=== PATIENT | male | born 1960 | race Caucasian/White ===

== ENCOUNTER 2019-02-13 23:10 | Inpatient (IN) | payer OTHER ==
[2019-02-14 01:49] LABS: ABNORMAL IP MESSAGE 1; HEMATOCRIT 43.8 % (42.0-52.0); HEMOGLOBIN 14.7 g/dl (14.0-18.0); MEAN CORPUSCULAR HEMOGLOBIN 29.9 pg (29.0-33.0); MEAN CORPUSCULAR HGB CONC 33.6 g/dl (32.0-37.0); PLATELET COUNT 230 10^3/UL (140-415); POSITIVE DIFF @See below; RED BLOOD COUNT 4.92 10^6/ul (4.70-6.10); RED CELL DISTRIBUTION WIDTH 12.5 % (11.5-14.5)
[2019-02-14 01:49] LABS: WHITE BLOOD COUNT 26.2 10^3/ul (4.8-10.8)
[2019-02-14] MEDS: SOD CHLORIDE 0.9% 1,000 ML IV ×2 (01:55→03:51)
[2019-02-14] MEDS: METOCLOPRAMIDE 10 MG INJ IV (01:55)
[2019-02-14] MEDS: LIDOCAINE/MYLANTA 40 ML BTL PO (01:55)
[2019-02-14] MEDS: FAMOTIDINE 20 MG TAB PO (01:55)
[2019-02-14 02:00] LABS: ADD MAN DIFF? YES
[2019-02-14 03:02] LABS: ALANINE AMINOTRANSFERASE 37 IU/L (13-69); ALBUMIN 4.5 g/dl (3.3-4.9); ALBUMIN/GLOBULIN RATIO 1.25; ALKALINE PHOSPHATASE 129 IU/L (42-121); ANION GAP 24 (5-13); ASPARTATE AMINO TRANSFERASE 32 IU/L (15-46); BILIRUBIN,INDIRECT 0.5 mg/dl (0-1.1); BILIRUBIN,TOTAL 0.5 mg/dl (0.2-1.3); BLOOD UREA NITROGEN 54 mg/dl (7-20); CALCIUM 10.1 mg/dl (8.4-10.2); CARBON DIOXIDE 17 mmol/L (21-31); CHLORIDE 96 mmol/L (97-110); CREATININE 2.63 mg/dl (0.61-1.24); Estimated GFR 25 mL/min (>60); LIPASE 230 U/L (23-300); POTASSIUM 5.8 mmol/L (3.5-5.1); SODIUM 137 mmol/L (135-144); TOTAL PROTEIN 8.1 g/dl (6.1-8.1); TROPONIN-I < 0.012 ng/ml (0.000-0.120)
[2019-02-14 03:04] LABS: GLUCOSE 662 mg/dl (70-220)
[2019-02-14 03:06] LABS: BAND NEUTROPHILS #M 1.5 10^3/ul (0.0-0.6); BAND NEUTROPHILS % (M) 6 % (0-4); LYMPHOCYTES % (M) 8 % (15-51); MONOCYTE #M 1.3 10^3/ul (0.3-0.9); MONOCYTES % (M) 5 % (0-11); PLATELET ESTIMATE NORMAL; POIKILOCYTOSIS 1+ (0-0); POLYCHROMASIA 2+ (0-0); SEG NEUT #M 21.6 10^3/ul (1.6-7.5); SEGMENTED NEUTROPHILS (M) % 81 % (39-77); SMUDGE%M 3 % (0-0)
[2019-02-14] MEDS ORDERED: DEXTROSE 10 %/0.45 % NACL 1,000 ML IV (03:26)
[2019-02-14] MEDS ORDERED: D10/0.45% NACL + KCL 40 MEQ 1,000 ML IV (03:26)
[2019-02-14] MEDS ORDERED: NS + KCL 40 MEQ 1,000 ML IV (03:26)
[2019-02-14] MEDS ORDERED: DEXTROSE 50% 50 ML SYRINGE IV ×2 (03:30)
[2019-02-14 03:39] LABS: ADD UMIC YES; UR ASCORBIC ACID NEGATIVE (NEGATIVE); UR BACTERIA FEW /HPF (NONE SEEN); UR BILIRUBIN (Dip) NEGATIVE (NEGATIVE); UR BLOOD (Dip) 2+ mg/dL (NEGATIVE); UR CLARITY CLEAR (CLEAR); UR COLOR STRAW (YELLOW); UR GLUCOSE (Dip) 3+ mg/dL (NEGATIVE); UR KETONES (Dip) 1+ mg/dL (NEGATIVE); UR LEUKOCYTE ESTERASE (Dip) NEGATIVE Leu/ul (NEGATIVE); UR NITRITE (Dip) NEGATIVE (NEGATIVE); UR RBC 1 /HPF (0-5); UR SPECIFIC GRAVITY (Dip) 1.025 (1.003-1.030); UR TOTAL PROTEIN (Dip) NEGATIVE (NEGATIVE); UR UROBILINOGEN (Dip) NEGATIVE (NEGATIVE); UR WBC 15 /HPF (0-5)
[2019-02-14 03:47] LABS: HEMOGLOBIN A1C 12.1 % (0-5.9)
[2019-02-14 03:48] LABS: PHOSPHORUS 4.4 mg/dl (2.5-4.9)
[2019-02-14 03:48] LABS: MAGNESIUM 2.9 mg/dl (1.7-2.5); MODE ROOM AIR; MetHgb Venous 0.2 %; Sample Type Blood venous; Site VENOUS LINE; Venous COHb 0.6 %; Venous Fraction OxyHgb 51.3 %; Venous Oxygen Sat 51.7 mmHG (55.0-75.0)
[2019-02-14] MEDS: LACTATED RINGER'S 910 ML IV (03:50)
[2019-02-14] MEDS: INSULIN REGULAR, HUMAN 100 UNIT in SOD CHLORIDE 0.9% 100 ML IV (04:15)
[2019-02-14 05:26] LABS: MODE ROOM AIR; MetHgb Venous 0.2 %; Sample Type Blood venous; Site VENOUS LINE; Venous COHb 0.7 %; Venous Fraction OxyHgb 53.8 %; Venous Oxygen Sat 54.3 mmHG (55.0-75.0); Venous Total Hemglobin 14.2 g/dl
[2019-02-14] MEDS ORDERED: ONDANSETRON 4 MG INJ IV (07:00)
[2019-02-14] MEDS ORDERED: ALBUTEROL/IPRATROPIUM (NEB) 3 ML AMP NEB (07:00)
[2019-02-14] MEDS: NS + KCL 30 MEQ 1,000 ML IV (07:16)
[2019-02-14 07:20] LABS: ANION GAP 21 (5-13); BLOOD UREA NITROGEN 52 mg/dl (7-20); CALCIUM 9.3 mg/dl (8.4-10.2); CARBON DIOXIDE 16 mmol/L (21-31); CHLORIDE 102 mmol/L (97-110); CREATININE 2.33 mg/dl (0.61-1.24); Estimated GFR 29 mL/min (>60); MAGNESIUM 2.9 mg/dl (1.7-2.5); PHOSPHORUS 3.8 mg/dl (2.5-4.9); POTASSIUM 4.9 mmol/L (3.5-5.1); SODIUM 139 mmol/L (135-144)
[2019-02-14 07:22] LABS: GLUCOSE 495 mg/dl (70-220)
[2019-02-14 08:14] LABS: MODE ROOM AIR; MetHgb Venous 0.2 %; Sample Type Blood venous; Site VENOUS LINE; Venous COHb 0.8 %; Venous Fraction OxyHgb 87.2 %; Venous Oxygen Sat 88.1 mmHG (55.0-75.0); Venous Total Hemglobin 13.9 g/dl
[2019-02-14 08:31] LABS: ANION GAP 18 (5-13); BLOOD UREA NITROGEN 51 mg/dl (7-20); CALCIUM 9.3 mg/dl (8.4-10.2); CARBON DIOXIDE 17 mmol/L (21-31); CHLORIDE 106 mmol/L (97-110); CREATININE 2.15 mg/dl (0.61-1.24); Estimated GFR 32 mL/min (>60); GLUCOSE 357 mg/dl (70-220); MAGNESIUM 2.9 mg/dl (1.7-2.5); PHOSPHORUS 3.5 mg/dl (2.5-4.9); POTASSIUM 4.6 mmol/L (3.5-5.1); SODIUM 141 mmol/L (135-144)
[2019-02-14] MEDS: PANTOPRAZOLE 40 MG INJ IV (09:09)
[2019-02-14] MEDS: CEFTRIAXONE 1 GM/50 ML (PMX) 50 ML IVPB (09:10)
[2019-02-14] MEDS: ENOXAPARIN 40 MG/0.4 ML SYG SC (09:10)
[2019-02-14] MEDS: D10/0.45% NACL + KCL 30 MEQ 1,000 ML IV (10:15)
[2019-02-14 11:30] LABS: ANION GAP 11 (5-13); BLOOD UREA NITROGEN 49 mg/dl (7-20); CALCIUM 8.9 mg/dl (8.4-10.2); CARBON DIOXIDE 23 mmol/L (21-31); CHLORIDE 109 mmol/L (97-110); CREATININE 2.05 mg/dl (0.61-1.24); Estimated GFR 34 mL/min (>60); GLUCOSE 218 mg/dl (70-220); MAGNESIUM 2.9 mg/dl (1.7-2.5); PHOSPHORUS 2.5 mg/dl (2.5-4.9); POTASSIUM 4.6 mmol/L (3.5-5.1); SODIUM 143 mmol/L (135-144)
[2019-02-14 12:50] LABS: ADD UMIC YES; UR ASCORBIC ACID NEGATIVE (NEGATIVE); UR BILIRUBIN (Dip) NEGATIVE (NEGATIVE); UR BLOOD (Dip) 2+ mg/dL (NEGATIVE); UR CLARITY SLIGHTLY CLOUDY (CLEAR); UR COLOR STRAW (YELLOW); UR GLUCOSE (Dip) 3+ mg/dL (NEGATIVE); UR KETONES (Dip) 1+ mg/dL (NEGATIVE); UR LEUKOCYTE ESTERASE (Dip) TRACE Leu/ul (NEGATIVE); UR NITRITE (Dip) NEGATIVE (NEGATIVE); UR RBC 4 /HPF (0-5); UR SPECIFIC GRAVITY (Dip) 1.024 (1.003-1.030); UR TOTAL PROTEIN (Dip) NEGATIVE (NEGATIVE); UR UROBILINOGEN (Dip) NEGATIVE (NEGATIVE); UR WBC 18 /HPF (0-5)
[2019-02-14] MEDS: INSULIN GLARGINE [LANTus] (100 UNITS/ML) SYG SC ×2 (13:06→22:18)
[2019-02-14 16:23] LABS: ANION GAP 9 (5-13); BLOOD UREA NITROGEN 41 mg/dl (7-20); CALCIUM 8.9 mg/dl (8.4-10.2); CARBON DIOXIDE 20 mmol/L (21-31); CHLORIDE 114 mmol/L (97-110); CREATININE 1.77 mg/dl (0.61-1.24); Estimated GFR 40 mL/min (>60); GLUCOSE 186 mg/dl (70-220); MAGNESIUM 2.9 mg/dl (1.7-2.5); PHOSPHORUS 2.4 mg/dl (2.5-4.9); POTASSIUM 4.8 mmol/L (3.5-5.1); SODIUM 143 mmol/L (135-144)
[2019-02-14] MEDS: INSULIN ASPART [NOVOLOG] 3 ML PEN SC ×3 (18:24→22:13)
[2019-02-14 20:21] LABS: ANION GAP 13 (5-13); BLOOD UREA NITROGEN 39 mg/dl (7-20); CALCIUM 8.8 mg/dl (8.4-10.2); CARBON DIOXIDE 18 mmol/L (21-31); CHLORIDE 110 mmol/L (97-110); CREATININE 1.64 mg/dl (0.61-1.24); Estimated GFR 43 mL/min (>60); GLUCOSE 367 mg/dl (70-220); MAGNESIUM 2.6 mg/dl (1.7-2.5); PHOSPHORUS 2.3 mg/dl (2.5-4.9); POTASSIUM 5.3 mmol/L (3.5-5.1); SODIUM 141 mmol/L (135-144)
[2019-02-14] MEDS: ACETAMINOPHEN 650MG/20.3ML CUP PO (22:20)
[2019-02-14 23:52] LABS: ANION GAP 14 (5-13); BLOOD UREA NITROGEN 39 mg/dl (7-20); CALCIUM 8.9 mg/dl (8.4-10.2); CARBON DIOXIDE 19 mmol/L (21-31); CHLORIDE 109 mmol/L (97-110); CREATININE 1.66 mg/dl (0.61-1.24); Estimated GFR 43 mL/min (>60); GLUCOSE 355 mg/dl (70-220); MAGNESIUM 2.7 mg/dl (1.7-2.5); PHOSPHORUS 2.5 mg/dl (2.5-4.9); POTASSIUM 5.1 mmol/L (3.5-5.1); SODIUM 142 mmol/L (135-144)
[2019-02-15] MEDS: ACCU-CHEK XX ×3 (02:00→20:56)
[2019-02-15 04:01] LABS: CHOL/HDL RATIO 5.9 RATIO; HDL CHOLESTEROL 18 mg/dl (28-71); LDL CHOLESTEROL,CALCULATED 44 mg/dl; TRIGLYCERIDES 224 mg/dl (0-149)
[2019-02-15 04:01] LABS: CHOLESTEROL 107 mg/dl (100-200)
[2019-02-15 04:02] LABS: ANION GAP 10 (5-13); BLOOD UREA NITROGEN 35 mg/dl (7-20); CALCIUM 9.3 mg/dl (8.4-10.2); CARBON DIOXIDE 19 mmol/L (21-31); CHLORIDE 112 mmol/L (97-110); CREATININE 1.53 mg/dl (0.61-1.24); Estimated GFR 47 mL/min (>60); GLUCOSE 250 mg/dl (70-220); MAGNESIUM 2.7 mg/dl (1.7-2.5); PHOSPHORUS 2.6 mg/dl (2.5-4.9); POTASSIUM 4.7 mmol/L (3.5-5.1); SODIUM 141 mmol/L (135-144)
[2019-02-15] MEDS: FAMOTIDINE 20 MG INJ IV (08:10)
[2019-02-15] MEDS: CEFTRIAXONE 1 GM/50 ML (PMX) 50 ML IVPB (08:11)
[2019-02-15] MEDS: INSULIN ASPART [NOVOLOG] 3 ML PEN SC ×7 (08:14→20:55)
[2019-02-15] MEDS: ENOXAPARIN 40 MG/0.4 ML SYG SC (08:18)
[2019-02-15 08:22] LABS: ANION GAP 13 (5-13); BLOOD UREA NITROGEN 33 mg/dl (7-20); CALCIUM 8.9 mg/dl (8.4-10.2); CARBON DIOXIDE 20 mmol/L (21-31); CHLORIDE 107 mmol/L (97-110); CREATININE 1.52 mg/dl (0.61-1.24); Estimated GFR 47 mL/min (>60); GLUCOSE 234 mg/dl (70-220); MAGNESIUM 2.5 mg/dl (1.7-2.5); PHOSPHORUS 2.7 mg/dl (2.5-4.9); POTASSIUM 4.8 mmol/L (3.5-5.1); SODIUM 140 mmol/L (135-144)
[2019-02-15 12:15] LABS: ANION GAP 13 (5-13); BLOOD UREA NITROGEN 34 mg/dl (7-20); CALCIUM 9.2 mg/dl (8.4-10.2); CARBON DIOXIDE 18 mmol/L (21-31); CHLORIDE 109 mmol/L (97-110); CREATININE 1.35 mg/dl (0.61-1.24); Estimated GFR 54 mL/min (>60); GLUCOSE 246 mg/dl (70-220); MAGNESIUM 2.5 mg/dl (1.7-2.5); PHOSPHORUS 2.9 mg/dl (2.5-4.9); POTASSIUM 4.9 mmol/L (3.5-5.1); SODIUM 140 mmol/L (135-144)
[2019-02-15] MEDS ORDERED: GLUCAGON 1 MG INJ IM (16:00)
[2019-02-15] MEDS ORDERED: GLUCOSE GEL 15 GRAM TUBE BUCCAL (16:00)
[2019-02-15] MEDS ORDERED: GLUCOSE GEL 15 GRAM TUBE PO ×2 (16:00)
[2019-02-15] MEDS ORDERED: DEXTROSE 50% 50 ML SYRINGE IV ×2 (16:00)
[2019-02-15 16:21] LABS: ADD MAN DIFF? NO
[2019-02-15 16:23] LABS: WHITE BLOOD COUNT 13.7 10^3/ul (4.8-10.8)
[2019-02-15 16:23] LABS: BASOPHIL # 0.1 10^3/ul (0.0-0.1); BASOPHILS % 0.7 % (0.0-2.0); EOSINOPHILS # 0.3 10^3/ul (0.0-0.5); EOSINOPHILS % 2.2 % (0.0-7.0); HEMATOCRIT 39.5 % (42.0-52.0); HEMOGLOBIN 13.6 g/dl (14.0-18.0); LYMPHOCYTES # 1.8 10^3/ul (0.8-2.9); LYMPHOCYTES % 12.9 % (15.0-51.0); MEAN CORPUSCULAR HEMOGLOBIN 29.9 pg (29.0-33.0); MEAN CORPUSCULAR HGB CONC 34.4 g/dl (32.0-37.0); MEAN CORPUSCULAR VOLUME 86.8 fl (82.0-101.0); MEAN PLATELET VOLUME 10.8 fl (7.4-10.4); MONOCYTE # 1.3 10^3/ul (0.3-0.9); MONOCYTES % 9.7 % (0.0-11.0); NEUTROPHIL # 9.9 10^3/ul (1.6-7.5); NEUTROPHILS % 72.5 % (39.0-77.0); PLATELET COUNT 261 10^3/UL (140-415); RED BLOOD COUNT 4.55 10^6/ul (4.70-6.10); RED CELL DISTRIBUTION WIDTH 12.4 % (11.5-14.5)
[2019-02-15 16:47] LABS: ANION GAP 15 (5-13); BLOOD UREA NITROGEN 31 mg/dl (7-20); CALCIUM 8.9 mg/dl (8.4-10.2); CARBON DIOXIDE 17 mmol/L (21-31); CHLORIDE 106 mmol/L (97-110); CREATININE 1.35 mg/dl (0.61-1.24); Estimated GFR 54 mL/min (>60); GLUCOSE 217 mg/dl (70-220); MAGNESIUM 2.4 mg/dl (1.7-2.5); POTASSIUM 4.6 mmol/L (3.5-5.1); SODIUM 138 mmol/L (135-144)
[2019-02-15] MEDS: LISINOPRIL 10 MG TAB PO (17:42)
[2019-02-15] MEDS: EZETIMIBE 10 MG TAB PO (17:42)
[2019-02-15] MEDS: LORATADINE 10 MG TAB PO (17:42)
[2019-02-15] MEDS: ASPIRIN (EC) 81 MG TAB PO (17:42)
[2019-02-15] MEDS: FENOFIBRATE 145 MG TAB PO (17:42)
[2019-02-15] MEDS: CLOPIDOGREL 75 MG TAB PO (17:43)
[2019-02-15 20:45] LABS: ANION GAP 11 (5-13); BLOOD UREA NITROGEN 32 mg/dl (7-20); CALCIUM 8.7 mg/dl (8.4-10.2); CARBON DIOXIDE 20 mmol/L (21-31); CHLORIDE 107 mmol/L (97-110); CREATININE 1.33 mg/dl (0.61-1.24); Estimated GFR 55 mL/min (>60); GLUCOSE 246 mg/dl (70-220); MAGNESIUM 2.2 mg/dl (1.7-2.5); PHOSPHORUS 3.2 mg/dl (2.5-4.9); POTASSIUM 4.5 mmol/L (3.5-5.1); SODIUM 138 mmol/L (135-144)
[2019-02-15] MEDS: INSULIN GLARGINE [LANTus] (100 UNITS/ML) SYG SC (20:54)
[2019-02-15] MEDS: MONTELUKAST 10 MG TAB PO (20:54)
[2019-02-15] MEDS: AMITRIPTYLINE 25 MG TAB PO (20:54)
[2019-02-16 00:07] LABS: ANION GAP 11 (5-13); BLOOD UREA NITROGEN 31 mg/dl (7-20); CALCIUM 8.9 mg/dl (8.4-10.2); CARBON DIOXIDE 21 mmol/L (21-31); CHLORIDE 107 mmol/L (97-110); CREATININE 1.29 mg/dl (0.61-1.24); Estimated GFR 57 mL/min (>60); GLUCOSE 202 mg/dl (70-220); MAGNESIUM 2.2 mg/dl (1.7-2.5); PHOSPHORUS 3.1 mg/dl (2.5-4.9); POTASSIUM 4.5 mmol/L (3.5-5.1); SODIUM 139 mmol/L (135-144)
[2019-02-16] MEDS: ACCU-CHEK XX ×6 (02:00→20:42)
[2019-02-16 05:22] LABS: ADD MAN DIFF? NO
[2019-02-16 05:36] LABS: WHITE BLOOD COUNT 10.6 10^3/ul (4.8-10.8)
[2019-02-16 05:36] LABS: BASOPHIL # 0.1 10^3/ul (0.0-0.1); BASOPHILS % 1.3 % (0.0-2.0); EOSINOPHILS # 0.4 10^3/ul (0.0-0.5); EOSINOPHILS % 3.8 % (0.0-7.0); HEMATOCRIT 40.4 % (42.0-52.0); LYMPHOCYTES # 1.7 10^3/ul (0.8-2.9); LYMPHOCYTES % 15.8 % (15.0-51.0); MEAN CORPUSCULAR HEMOGLOBIN 29.7 pg (29.0-33.0); MEAN CORPUSCULAR HGB CONC 34.7 g/dl (32.0-37.0); MEAN CORPUSCULAR VOLUME 85.8 fl (82.0-101.0); MEAN PLATELET VOLUME 10.8 fl (7.4-10.4); MONOCYTE # 1.2 10^3/ul (0.3-0.9); MONOCYTES % 11.4 % (0.0-11.0); NEUTROPHIL # 6.7 10^3/ul (1.6-7.5); NEUTROPHILS % 62.9 % (39.0-77.0); PLATELET COUNT 271 10^3/UL (140-415); RED BLOOD COUNT 4.71 10^6/ul (4.70-6.10); RED CELL DISTRIBUTION WIDTH 12.2 % (11.5-14.5)
[2019-02-16 06:12] LABS: ANION GAP 13 (5-13); BLOOD UREA NITROGEN 29 mg/dl (7-20); CALCIUM 9.4 mg/dl (8.4-10.2); CARBON DIOXIDE 19 mmol/L (21-31); CHLORIDE 108 mmol/L (97-110); CREATININE 1.27 mg/dl (0.61-1.24); Estimated GFR 58 mL/min (>60); GLUCOSE 225 mg/dl (70-220); POTASSIUM 4.5 mmol/L (3.5-5.1); SODIUM 140 mmol/L (135-144)
[2019-02-16 06:13] LABS: MAGNESIUM 2.1 mg/dl (1.7-2.5)
[2019-02-16] MEDS: EZETIMIBE 10 MG TAB PO (08:24)
[2019-02-16] MEDS: ASPIRIN (EC) 81 MG TAB PO (08:24)
[2019-02-16] MEDS: CLOPIDOGREL 75 MG TAB PO (08:24)
[2019-02-16] MEDS: FENOFIBRATE 145 MG TAB PO (08:24)
[2019-02-16] MEDS: LORATADINE 10 MG TAB PO (08:24)
[2019-02-16] MEDS: ENOXAPARIN 40 MG/0.4 ML SYG SC (08:24)
[2019-02-16] MEDS: LISINOPRIL 10 MG TAB PO (08:25)
[2019-02-16] MEDS: LINAGLIPTIN 5 MG TABLET PO (08:25)
[2019-02-16] MEDS: FAMOTIDINE 20 MG TAB PO (08:25)
[2019-02-16] MEDS: INSULIN ASPART [NOVOLOG] 3 ML PEN SC ×8 (08:26→20:32)
[2019-02-16] MEDS: CEFTRIAXONE 1 GM/50 ML (PMX) 50 ML IVPB (09:38)
[2019-02-16] MEDS: MAGNESIUM HYDROXIDE 30ML CUP PO (09:41)
[2019-02-16] MEDS ORDERED: POLYETHYLENE GLYCOL 17 GM PACKET PO (13:30)
[2019-02-16] MEDS ORDERED: BISACODYL 10 MG SUPP PR (13:30)
[2019-02-16 15:22] LABS: PROSTATE SPECIFIC ANTIGEN 4.3 ng/ml (0.0-4.0)
[2019-02-16] MEDS: PANTOPRAZOLE (EC) 40 MG TAB PO (18:23)
[2019-02-16] MEDS: ARTIFICIAL TEARS 15 ML OPH BOTH EYES (20:30)
[2019-02-16] MEDS: MONTELUKAST 10 MG TAB PO (20:30)
[2019-02-16] MEDS: LIDOCAINE 4% CR TOP (20:30)
[2019-02-16] MEDS: TAMSULOSIN (SR) 0.4 MG CAP PO (20:30)
[2019-02-16] MEDS: INSULIN GLARGINE [LANTus] (100 UNITS/ML) SYG SC (20:33)
[2019-02-16] MEDS ORDERED: LATANOPROST 0.005% 2.5 ML OPH BOTH EYES (21:00)
[2019-02-16] MEDS: LATANOPROST 0.005% 2.5 ML OPH BOTH EYES (21:51)
[2019-02-17] MEDS: ACCU-CHEK XX ×5 (02:31→21:00)
[2019-02-17 05:08] LABS: ADD UMIC YES; UR ASCORBIC ACID NEGATIVE (NEGATIVE); UR BILIRUBIN (Dip) NEGATIVE (NEGATIVE); UR BLOOD (Dip) 3+ mg/dL (NEGATIVE); UR CLARITY CLEAR (CLEAR); UR COLOR YELLOW (YELLOW); UR GLUCOSE (Dip) 3+ mg/dL (NEGATIVE); UR KETONES (Dip) 1+ mg/dL (NEGATIVE); UR LEUKOCYTE ESTERASE (Dip) NEGATIVE Leu/ul (NEGATIVE); UR NITRITE (Dip) NEGATIVE (NEGATIVE); UR RBC > 182 /HPF (0-5); UR SPECIFIC GRAVITY (Dip) 1.024 (1.003-1.030); UR TOTAL PROTEIN (Dip) NEGATIVE (NEGATIVE); UR UROBILINOGEN (Dip) NEGATIVE (NEGATIVE); UR WBC 8 /HPF (0-5)
[2019-02-17] MEDS: PANTOPRAZOLE (EC) 40 MG TAB PO ×2 (06:17→17:13)
[2019-02-17] MEDS: INSULIN ASPART [NOVOLOG] 3 ML PEN SC ×7 (08:33→20:50)
[2019-02-17] MEDS: ENOXAPARIN 40 MG/0.4 ML SYG SC (08:34)
[2019-02-17] MEDS: ARTIFICIAL TEARS 15 ML OPH BOTH EYES ×2 (08:37→20:49)
[2019-02-17] MEDS: CEFTRIAXONE 1 GM/50 ML (PMX) 50 ML IVPB (08:38)
[2019-02-17] MEDS: CLOPIDOGREL 75 MG TAB PO (08:44)
[2019-02-17] MEDS: LORATADINE 10 MG TAB PO (08:44)
[2019-02-17] MEDS: FENOFIBRATE 145 MG TAB PO (08:44)
[2019-02-17] MEDS: ASPIRIN (EC) 81 MG TAB PO (08:44)
[2019-02-17] MEDS: LINAGLIPTIN 5 MG TABLET PO (08:45)
[2019-02-17] MEDS: EZETIMIBE 10 MG TAB PO (08:45)
[2019-02-17] MEDS: LISINOPRIL 10 MG TAB PO (08:45)
[2019-02-17] MEDS: LIDOCAINE 4% CR TOP ×2 (08:46→20:49)
[2019-02-17] MEDS: MONTELUKAST 10 MG TAB PO (20:48)
[2019-02-17] MEDS: TAMSULOSIN (SR) 0.4 MG CAP PO (20:48)
[2019-02-17] MEDS: INSULIN GLARGINE [LANTus] (100 UNITS/ML) SYG SC (20:50)
[2019-02-17] MEDS: LATANOPROST 0.005% 2.5 ML OPH BOTH EYES (20:51)
[2019-02-17] MEDS: BETHANECHOL 10 MG TAB PO (20:54)
[2019-02-18] MEDS: ACCU-CHEK XX ×5 (02:21→21:00)
[2019-02-18] MEDS: DOCUSATE SODIUM 100 MG CAP PO (04:57)
[2019-02-18] MEDS: PANTOPRAZOLE (EC) 40 MG TAB PO ×2 (05:37→17:41)
[2019-02-18 08:01] LABS: ANION GAP 10 (5-13); BLOOD UREA NITROGEN 29 mg/dl (7-20); CALCIUM 9.5 mg/dl (8.4-10.2); CARBON DIOXIDE 25 mmol/L (21-31); CHLORIDE 104 mmol/L (97-110); CREATININE 1.37 mg/dl (0.61-1.24); Estimated GFR 53 mL/min (>60); GLUCOSE 209 mg/dl (70-220); SODIUM 139 mmol/L (135-144)
[2019-02-18] MEDS: INSULIN ASPART [NOVOLOG] 3 ML PEN SC ×7 (08:19→21:30)
[2019-02-18] MEDS: LISINOPRIL 10 MG TAB PO (09:00)
[2019-02-18] MEDS: LIDOCAINE 4% CR TOP ×3 (09:00→21:29)
[2019-02-18] MEDS: CEFTRIAXONE 1 GM/50 ML (PMX) 50 ML IVPB (09:16)
[2019-02-18] MEDS: ARTIFICIAL TEARS 15 ML OPH BOTH EYES ×2 (09:16→21:28)
[2019-02-18] MEDS: CLOPIDOGREL 75 MG TAB PO (09:17)
[2019-02-18] MEDS: EZETIMIBE 10 MG TAB PO (09:17)
[2019-02-18] MEDS: LORATADINE 10 MG TAB PO (09:17)
[2019-02-18] MEDS: ASPIRIN (EC) 81 MG TAB PO (09:17)
[2019-02-18] MEDS: FENOFIBRATE 145 MG TAB PO (09:17)
[2019-02-18] MEDS: LINAGLIPTIN 5 MG TABLET PO (09:17)
[2019-02-18] MEDS: BETHANECHOL 10 MG TAB PO ×2 (09:17→13:55)
[2019-02-18] MEDS: ENOXAPARIN 40 MG/0.4 ML SYG SC (09:20)
[2019-02-18] MEDS: MAGNESIUM HYDROXIDE 30ML CUP PO (09:24)
[2019-02-18] MEDS ORDERED: AL HYDROX/MG HYDROX/SIMETH 30 ML CUP PO (17:00)
[2019-02-18 18:33] LABS: TROPONIN-I < 0.012 ng/ml (0.000-0.120)
[2019-02-18] MEDS: MONTELUKAST 10 MG TAB PO (21:25)
[2019-02-18] MEDS: BETHANECHOL 25 MG TAB PO (21:25)
[2019-02-18] MEDS: SUCRALFATE (100 MG/ML) 10ML CUP PO (21:26)
[2019-02-18] MEDS: LATANOPROST 0.005% 2.5 ML OPH BOTH EYES (21:28)
[2019-02-18] MEDS: TAMSULOSIN (SR) 0.4 MG CAP PO (21:28)
[2019-02-18] MEDS: INSULIN GLARGINE [LANTus] (100 UNITS/ML) SYG SC (21:31)
[2019-02-19] MEDS: ACCU-CHEK XX ×5 (02:00→20:51)
[2019-02-19] MEDS: BISACODYL (EC) 5 MG TAB PO (02:08)
[2019-02-19] MEDS: PANTOPRAZOLE (EC) 40 MG TAB PO ×2 (05:54→17:19)
[2019-02-19] MEDS: INSULIN ASPART [NOVOLOG] 3 ML PEN SC ×7 (08:06→20:50)
[2019-02-19] MEDS: ARTIFICIAL TEARS 15 ML OPH BOTH EYES ×2 (08:34→20:42)
[2019-02-19] MEDS: SUCRALFATE (100 MG/ML) 10ML CUP PO ×4 (08:34→20:37)
[2019-02-19] MEDS: CEFTRIAXONE 1 GM/50 ML (PMX) 50 ML IVPB (08:34)
[2019-02-19] MEDS: LORATADINE 10 MG TAB PO (08:34)
[2019-02-19] MEDS: ENOXAPARIN 40 MG/0.4 ML SYG SC (08:37)
[2019-02-19] MEDS: ASPIRIN (EC) 81 MG TAB PO (08:37)
[2019-02-19] MEDS: BETHANECHOL 25 MG TAB PO ×3 (08:38→20:37)
[2019-02-19] MEDS: FENOFIBRATE 145 MG TAB PO (08:38)
[2019-02-19] MEDS: CLOPIDOGREL 75 MG TAB PO (08:38)
[2019-02-19] MEDS: EZETIMIBE 10 MG TAB PO (08:38)
[2019-02-19] MEDS: LINAGLIPTIN 5 MG TABLET PO (08:38)
[2019-02-19] MEDS: POLYETHYLENE GLYCOL 17 GM PACKET PO (12:08)
[2019-02-19] MEDS: LIDOCAINE 4% CR TOP ×2 (12:09→20:51)
[2019-02-19] MEDS: NA PHOSPHATE/BIPHOS 133 ML ENEMA PR (17:19)
[2019-02-19] MEDS: LATANOPROST 0.005% 2.5 ML OPH BOTH EYES (20:36)
[2019-02-19] MEDS: MONTELUKAST 10 MG TAB PO (20:37)
[2019-02-19] MEDS: TAMSULOSIN (SR) 0.4 MG CAP PO (20:42)
[2019-02-19] MEDS: INSULIN GLARGINE [LANTus] (100 UNITS/ML) SYG SC (20:49)
[2019-02-20] MEDS: ACCU-CHEK XX ×3 (01:22→11:39)
[2019-02-20] MEDS: PANTOPRAZOLE (EC) 40 MG TAB PO (06:04)
[2019-02-20] MEDS: FENOFIBRATE 145 MG TAB PO (08:13)
[2019-02-20] MEDS: LORATADINE 10 MG TAB PO (08:13)
[2019-02-20] MEDS: LINAGLIPTIN 5 MG TABLET PO (08:13)
[2019-02-20] MEDS: ASPIRIN (EC) 81 MG TAB PO (08:13)
[2019-02-20] MEDS: CLOPIDOGREL 75 MG TAB PO (08:13)
[2019-02-20] MEDS: POLYETHYLENE GLYCOL 17 GM PACKET PO (08:13)
[2019-02-20] MEDS: SUCRALFATE (100 MG/ML) 10ML CUP PO ×2 (08:13→13:53)
[2019-02-20] MEDS: BETHANECHOL 25 MG TAB PO ×2 (08:13→13:53)
[2019-02-20] MEDS: EZETIMIBE 10 MG TAB PO (08:13)
[2019-02-20] MEDS: ARTIFICIAL TEARS 15 ML OPH BOTH EYES (08:14)
[2019-02-20] MEDS: LIDOCAINE 4% CR TOP (08:14)
[2019-02-20] MEDS: CEFTRIAXONE 1 GM/50 ML (PMX) 50 ML IVPB (08:14)
[2019-02-20] MEDS: INSULIN ASPART [NOVOLOG] 3 ML PEN SC ×4 (08:16→11:50)
[2019-02-20] MEDS: ENOXAPARIN 40 MG/0.4 ML SYG SC (08:16)
== END 2019-02-20 15:25 | disposition home or self-care (01) | DRG 638 ==
LOC: E/R 23:10 → PP2 02-15 01:15 → ICU 02-14 05:14
DX: E11.10 Type 2 diabetes mellitus with ketoacidosis without coma (principal); N17.9 Acute kidney failure, unspecified; R65.10 Systemic inflammatory response syndrome (SIRS) of non-infectious origin without acute organ dysfunction; N31.8 Other neuromuscular dysfunction of bladder; E78.5 Hyperlipidemia, unspecified; I25.10 Atherosclerotic heart disease of native coronary artery without angina pectoris; I12.9 Hypertensive chronic kidney disease with stage 1 through stage 4 chronic kidney disease, or unspecified chronic kidney disease; E11.22 Type 2 diabetes mellitus with diabetic chronic kidney disease; E11.65 Type 2 diabetes mellitus with hyperglycemia; N18.9 Chronic kidney disease, unspecified; K21.9 Gastro-esophageal reflux disease without esophagitis; E66.3 Overweight; Z68.30 Body mass index [BMI] 30.0-30.9, adult; Z95.5 Presence of coronary angioplasty implant and graft; Z91.11 Patient's noncompliance with dietary regimen; Z91.14 Patient's other noncompliance with medication regimen; Z79.4 Long term (current) use of insulin; Z79.82 Long term (current) use of aspirin; Z87.891 Personal history of nicotine dependence
CPT/HCPCS: 36415; 71045; 74018; 76856; 80048; 80053; 80061; 81001; 82803; 82962; 83036; 83690; 83735; 84100; 84153; 84154; 84484; 85025; 87040-91; 87081; 87086; 93005; 93931; 96374; 97110; 97116; 97161; 99285-25